=== PATIENT | female | born 1965 | race Caucasian/White ===

== ENCOUNTER → 2020-04-23 15:03 | Outpatient (BNVA) | payer OTHER, SELFPAY | PROVIDERS: Visit Provider Obstetrics & Gynecology | DX: Z76.89 Persons encountering health services in other specified circumstances (principal) ==

== ENCOUNTER 2020-04-23 17:33 | Outpatient (REF) | payer OTHER, SELFPAY | END 2020-04-23 17:34 | disposition home or self-care (01) | LOC: HO.LNP 17:33 | PROVIDERS: Visit Provider Obstetrics & Gynecology | DX: N95.0 Postmenopausal bleeding (principal) | CPT/HCPCS: 88305 ==

== ENCOUNTER → 2020-06-16 11:32 | Outpatient (BNVA) | payer OTHER, SELFPAY | PROVIDERS: Visit Provider Obstetrics & Gynecology | DX: Z76.89 Persons encountering health services in other specified circumstances (principal) ==

== ENCOUNTER 2020-08-08 12:23 | Outpatient (REF) | payer OTHER, SELFPAY | END 2020-08-08 12:24 | disposition home or self-care (01) | LOC: HO.LAB 12:23 | PROVIDERS: Visit Provider Internal Medicine | DX: Z20.822 Contact with and (suspected) exposure to COVID-19 (principal) | CPT/HCPCS: 36415; C9803; U0003 ==

== ENCOUNTER → 2020-08-27 09:34 | Outpatient (BNVA) | payer OTHER, SELFPAY | PROVIDERS: Visit Provider Obstetrics & Gynecology ==

== ENCOUNTER 2020-09-05 08:48 | Day surgery (SDC) | payer OTHER, SELFPAY ==
[2020-09-01 10:18] VITALS: BMI 27.8
--- NOTE | 2020-09-03 12:08 | HO.ANESPROP2 ---
Documented by User: Bri Neil 09/03/20 12:08 HPI - Anesthesia Eval Consult details Narrative: 55yo F for D&C Hysteroscopy [facility] Active Problems Active Problems: All Active Problems (Updated 04/23/20 @ 15:30 by Bashir Bright MD) Postmenopausal bleeding (Acute) Past Medical History Medical History Carpal tunnel syndrome Hypertension Menorrhagia Sleep apnea Family History Family History Sister Squamous cell carcinoma of uterus Surgical History Surgical History History of bilateral tubal ligation History of Social History Social History Alcohol intake: never Smoking Status: Never smoker Use of substances other than those prescribed or required for medical reasons: No Advance Directives: No Advance Directives Information Provided: Yes Sexual orientation: Straight/Heterosexual Gender identity: female Meds Allergies Allergy/AdvReac Type Severity Reaction Status Date / Time lisinopril Allergy Cough Verified 09/05/20 09:26 Home Medications Medication Instructions Recorded Confirmed Last Taken Type amlodipine 5 mg tablet 5 mg PO DAILY 04/23/20 09/05/20 09/05/20 History losartan 100 mg tablet 100 mg PO DAILY 04/23/20 09/01/20 Unknown History Exam Exam Date and Time: September 03, 2020 1208 Height,Weight and Vital Signs: Height 4 ft 11 in Weight 62.596 kg Assessment and Plan Assessment Anesthesia Assessment: Chart Reviewed Documented by User: Jeanie Aguiar 09/05/20 09:38 [facility] Past Medical History Medical History Carpal tunnel syndrome Hypertension Menorrhagia Sleep apnea Family History Family History Sister Squamous cell carcinoma of uterus Family history of problems with anesthesia: No Surgical History Surgical History History of bilateral tubal ligation History of History of Problems with Anesthesia: No Social History Social History Alcohol intake: never Smoking Status: Never smoker Use of substances other than those prescribed or required for medical reasons: No Advance Directives: No Advance Directives Information Provided: Yes Sexual orientation: Straight/Heterosexual Gender identity: female Meds Allergies Allergy/AdvReac Type Severity Reaction Status Date / Time lisinopril Allergy Cough Verified 09/05/20 09:26 Home Medications Medication Instructions Recorded Confirmed Last Taken Type amlodipine 5 mg tablet 5 mg PO DAILY 04/23/20 09/05/20 09/05/20 History losartan 100 mg tablet 100 mg PO DAILY 04/23/20 09/01/20 Unknown History Exam Exam Date and Time: Vital Signs Temp Pulse Resp BP Pulse Ox 09/05/20 09:10 98.9 F 68 16 146/74 H 98 Airway Mallampati Class: II TM Dist: >3cm Neck ROM: Full Loose/Missing/Broken Teeth: Yes (Some extractions) Heart: RRR Lungs: CTAB Assessment and Plan Assessment Anesthesia Assessment: Anesthesia Plan Discussed and Chart Reviewed Final Anesthetic Review NPO: Yes ASA Class: II Final Preanesthetic Review: No Changes in Pt Med Stat, Meds/Allgs Chart Reviewed and Consent Obtained/Reviewed Patient Risk: Intermediate Procedure Risk: Low Assessment/Block/Sedation in SS: Assess/Block/Sedation-SS Anesthetic Plan Anesthetic Plan: GA Disposition: Standard PACU
[2020-09-05] VITALS (7 sets, daily range): BP systolic 110–146; BP diastolic 62–84; PULSE 68–87; RESP 14–16; TEMP 36.4–37.2; O2SAT 94–98
[2020-09-05] MEDS: Lactated Ringers 1,000 ML 100 ML IVCONT (09:25)
--- NOTE | 2020-09-05 10:16 | MHC.SHP ---
Pre-Procedural Eval Section A The patient is an INPATIENT: No Changes since office visit: No Cold of Flu in the past 2 weeks, No New Medical Problems, No Changes in Medication and No Patient answered all questions The History & Physical has been completed within 30 days and I have reviewed it.: Yes Section B Chief Complaint: PMB Allergies: Allergies Allergy/AdvReac Type Severity Reaction Status Date / Time lisinopril Allergy Cough Verified 09/05/20 09:26 Plan Diagnosis/Plan: Unchanged I have reviewed the history and physical and performed a pertinent physical examination on my patient. No changes have occurred unless specified.
--- NOTE | 2020-09-05 10:42 | PM.OP ---
Brief Operative Note Date of Service: 09/05/20 Pre-op diagnosis: Postmenopausal bleeding Post-op diagnosis: same (Normal endometrial and endocervical cavity with no evidence of pathology) Procedure: Hysteroscopy D&C Surgeon: Bashir Bright MD Anesthesia: MAC Estimated blood loss (mL): 0 Pathology: other (Endometrial Scrapping. Polyp) Condition: stable Disposition: PACU
--- NOTE | 2020-09-05 10:43 | W.PM.OPN ---
Operative Note Operative Note Date of Service: 09/05/20 Narrative: Preop Diagnosis: Postmenopausal bleeding Operation: Diagnostic Hysteroscopy, Dilataion & Curettage Post Op Diagnosis: normal endometrial and endocervical cavity no evidence of pathology QBL: Minimal Anesthesia: MAC Surgeon: Bashir Bright MD Corporate Giving Manager: None Complication: None Pathology: Endometrial Scrapings Procedure: The patient was put in the dorsal lithotomy position, scrubbed, and draped in the usual manner. A sterile speculum was inserted in the patient's vagina. The anterior lip of the cervix was grasped with a single tooth tenaculum. The cervix was dilated up t o 5 mm, then the scope was inserted in the patient's uterus. Inspection revealed normal endocervical & endometrial cavity with no evidence of pathology. The scope was taken out of the uterine cavity , then sharp curetting was carried on with no complications. At the end of the procedure, all instruments were taken out of the patient uterine and vaginal cavity. The single tooth tenaculum was removed and homeostasis was assured using pressure. The patient tolerated the procedure well and was transferred to the PACU in a stable condition.
[2020-09-05] MEDS: Acetaminophen 325 MG TABLET 650 MG PO (11:13)
== END 2020-09-05 12:21 ==
LOC: HO.SSS 08:48
PROVIDERS: PCP Internal Medicine; Visit Provider Obstetrics & Gynecology
PROC: 0UDB8ZX Extraction of Endometrium, Via Natural or Artificial Opening Endoscopic, Diagnostic (ICD-10-PCS; CPT 58558; principal; 2020-09-05 10:40)
DX: N95.0 Postmenopausal bleeding (principal); N72 Inflammatory disease of cervix uteri; G47.33 Obstructive sleep apnea (adult) (pediatric); I10 Essential (primary) hypertension; Z99.89 Dependence on other enabling machines and devices; Z80.49 Family history of malignant neoplasm of other genital organs; Z98.51 Tubal ligation status; Z79.899 Other long term (current) drug therapy; Z88.8 Allergy status to other drugs, medicaments and biological substances
CPT/HCPCS: 58558; 88305; J1100; J1885; J2250; J2405; J3010

== ENCOUNTER → 2020-09-17 11:49 | Outpatient (BNVA) | payer OTHER, SELFPAY | PROVIDERS: PCP Internal Medicine; Visit Provider Obstetrics & Gynecology ==

== ENCOUNTER 2021-09-01 08:02 | Outpatient (REF) | payer OTHER, SELFPAY ==
[2021-09-03 00:02] LABS: HPV mRNA E6/E7 rflx Not Detected (Not Detected)
== END 2021-09-01 08:03 | disposition home or self-care (01) ==
LOC: HO.LAB 08:02
PROVIDERS: PCP Internal Medicine; Visit Provider Obstetrics & Gynecology
DX: Z01.419 Encounter for gynecological examination (general) (routine) without abnormal findings (principal); Z11.51 Encounter for screening for human papillomavirus (HPV); N64.3 Galactorrhea not associated with childbirth
CPT/HCPCS: 87624; 88142

== ENCOUNTER 2021-09-05 07:21 | Outpatient (REF) | payer OTHER, SELFPAY ==
[2021-09-05 09:28] LABS: TSH reflex Free T4 1.49 uIU/mL (0.32-4.0)
[2021-09-06 02:30] LABS: Prolactin 11.2 ng/mL
== END 2021-09-05 07:22 | disposition home or self-care (01) ==
LOC: HO.LAB 07:21
PROVIDERS: PCP Internal Medicine; Visit Provider Obstetrics & Gynecology
DX: N64.3 Galactorrhea not associated with childbirth (principal)
CPT/HCPCS: 36415; 84146; 84443

== ENCOUNTER → 2021-09-14 14:09 | Outpatient (BNVA) | payer OTHER, SELFPAY | PROVIDERS: Visit Provider Obstetrics & Gynecology ==

== ENCOUNTER → 2022-11-17 08:34 | Outpatient (BNVA) | payer OTHER, SELFPAY | PROVIDERS: PCP Internal Medicine; Visit Provider Obstetrics & Gynecology ==